=== PATIENT | male | born 1955 | race Caucasian/White ===

== ENCOUNTER 2017-11-11 14:34 | Day surgery (SDC) | payer MEDICARE, BC ==
[~2017-11-11] VITALS: Ht 175.3 cm; Wt 102.9 kg
[2017-11-11] MEDS ORDERED: LORazepam 0.5 MG tablet PO PRN (15:05)
[2017-11-11] MEDS ORDERED: normal saline 1000ml 1,000 ML IV SCH (15:05)
[2017-11-11] MEDS ORDERED: diphenhydrAMINE 25mg capsule PO PRN (15:05)
[2017-11-11 15:12] VITALS: BP 130/80
[2017-11-11] MEDS ORDERED: AMLO5TAB4 PO (15:50)
[2017-11-11] MEDS ORDERED: ASPI81TA52 PO (15:51)
[2017-11-11] MEDS ORDERED: SIRO0.5T PO (15:51)
[2017-11-11] MEDS ORDERED: CALC-463 PO (15:52)
[2017-11-11] MEDS ORDERED: SAW/1TAB2 PO (15:53)
[2017-11-11] MEDS ORDERED: CHOL10002 PO (15:54)
[2017-11-11] MEDS ORDERED: UBID100C16 PO (15:55)
[2017-11-11] MEDS ORDERED: FISH12002 PO (15:56)
[2017-11-11] MEDS ORDERED: ESOM20CA PO (15:59)
[2017-11-11] MEDS ORDERED: LEVO100T PO (15:59)
[2017-11-11] MEDS ORDERED: midazolam 2 mg/2 ml injection ONE (16:37)
[2017-11-11] MEDS ORDERED: iohexol 350MG/ML 100ml bottle IV ONE (16:37)
[2017-11-11] MEDS ORDERED: fentaNYL/PF 50MCG/1 ML 2ML syringe ONE (16:37)
[2017-11-11] MEDS ORDERED: LIDOcaine 1%/PF (10mg/ml) 5ml vial ONE (16:37)
[2017-11-11 18:10] VITALS: BP 126/83
[2017-11-11 18:30] VITALS: BP 140/75
[2017-11-11 18:45] VITALS: BP 126/85
[2017-11-11 19:00] VITALS: BP 128/75
[2017-11-11 19:15] VITALS: BP 146/88
== END 2017-11-11 19:30 | disposition home or self-care (01) ==
LOC: SSTAY O 14:34
PROVIDERS: ATTEND Internal Medicine Interventional Cardiology
DX: I25.10 Atherosclerotic heart disease of native coronary artery without angina pectoris (principal); I25.2 Old myocardial infarction; Z95.5 Presence of coronary angioplasty implant and graft; I10 Essential (primary) hypertension
CPT/HCPCS: 93005; 93458; A6257; C1769; J1644; J2001; J2250; J3010; J7030; Q0163; Q9967; 99152; A4620

== ENCOUNTER 2019-01-25 19:27 | Emergency (ER) | payer MEDICARE, BC ==
[~2019-01-25] VITALS: Ht 170.2 cm; Wt 97.7 kg
[~2019-01-25 19:27] MED LIST: AMLO5TAB4 PO; ASPI81TA52 PO; CALC-463 PO; CHOL10002 PO; ESOM20CA PO; FISH12002 PO; LEVO100T PO; SAW/1TAB2 PO; SIRO0.5T PO; UBID100C16 PO
[2019-01-25] MEDS ORDERED: HYDROcodone/acetaminophen 5mg/325mg tablet PO ONE (20:40)
[2019-01-25] MEDS ORDERED: LIDOcaine 1% w/epiNEPHrine 1:200,000 30ml vial IM ONE (20:40)
[2019-01-25] MEDS ORDERED: amox tr/potassium clavulanate 875/125mg TAB PO ONE (21:30)
[2019-01-25] MEDS ORDERED: rabies immune globulin/PF 150 unit/ml inj IM ONE (21:30)
[2019-01-25] MEDS ORDERED: rabies vaccine (PCEC)/PF 2.5 unit kit IM ONE (21:30)
[2019-01-25] MEDS ORDERED: AMOX-580 PO (21:56)
[2019-01-25] MEDS ORDERED: HYDR-3965 PO (22:41)
[2019-01-25 22:57] VITALS: BP 144/90
== END 2019-01-25 22:57 | disposition home or self-care (01) ==
LOC: ER 19:27
DX: S61.411A Laceration without foreign body of right hand, initial encounter (principal); S60.311A Abrasion of right thumb, initial encounter; Z90.49 Acquired absence of other specified parts of digestive tract; Z79.82 Long term (current) use of aspirin; Z79.899 Other long term (current) drug therapy; W54.0XXA Bitten by dog, initial encounter; Y93.89 Activity, other specified; Y92.89 Other specified places as the place of occurrence of the external cause; Y99.8 Other external cause status
CPT/HCPCS: 73130; 90375; 90471; 90675; 96372; 99283; J3490

== ENCOUNTER 2019-09-28 16:10 | Emergency (ER) | payer MEDICARE, BC ==
[~2019-09-28] VITALS: Ht 188 cm; Wt 95.5 kg
[2019-09-28] MEDS ORDERED: normal saline 1000ML IV soln IVB ONE ×2 (16:40→21:30)
[2019-09-28 17:10] LABS: BASOPHILS # (AUTO) 0.1 X10'3 (0-0.2); BASOPHILS % (AUTO) 0.3 % (0-1); EOSINOPHILS # (AUTO) 0.8 X10'3 (0-0.9); EOSINOPHILS % (AUTO) 4.7 % (0-6); HEMATOCRIT 46.7 % (42.0-52.0); HEMOGLOBIN 16.1 g/dl (14.0-17.9); LYMPHOCYTES # (AUTO) 0.4 X10'3 (1.1-4.8); MEAN CORPUSCULAR HEMOGLOBIN 31.5 PG (27.0-31.0); MEAN CORPUSCULAR HGB CONC 34.5 g/dL (33.0-36.5); MEAN CORPUSCULAR VOLUME 91.2 FL (78-98); MONOCYTES # (AUTO) 1.5 X10'3 (0-0.9); MONOCYTES % (AUTO) 8.4 % (2-12); NEUTROPHILS # (AUTO) 14.6 X10'3 (1.8-7.7); NEUTROPHILS % (AUTO) 84.6 % (42-75); RED BLOOD COUNT 5.12 X10'6 (4.70-6.10); WHITE BLOOD COUNT 17.3 X10'3 (4.5-11.0)
[2019-09-28 17:18] LABS: PARTIAL THROMBOPLASTIN TIME 29 SECONDS (22-32)
[2019-09-28 17:26] LABS: ALANINE AMINOTRANSFERASE 43 U/L (12-78); ALKALINE PHOSPHATASE 138 IU/L (46-116); ANION GAP 12 (8-16); ASPARTATE AMINO TRANSFERASE 59 U/L (10-37); BILIRUBIN,TOTAL 11.9 MG/DL (0.1-1.0); BLOOD UREA NITROGEN 112 MG/DL (7-18); BUN/CREATININE RATIO 55.7 (5.4-32.0); CALCIUM 6.3 MG/DL (8.5-10.1); CHLORIDE 111 MMOL/L (99-107); CREATININE 2.01 MG/DL (0.60-1.10); ETHANOL < 0.010 GM/DL (0.0-0.010); GLUCOSE 115 MG/DL (70-104); SODIUM 144 MMOL/L (135-145); TOTAL CARBON DIOXIDE 21.4 MMOL/L (24-32); eGFR 33 ML/MIN
[2019-09-28 17:28] LABS: CLARITY,URINE SLIGHTLY CLOUDY (Clear); COLOR,URINE AMBER (Yellow); GLUCOSE, URINE 100 mg/dl (Neg); KETONES,URINE TRACE mg/dl (Neg); LEUKOCYTE ESTERASE ,URINE NEGATIVE (Neg); NITRITES, URINE NEGATIVE (Neg); OCCULT BLOOD,URINE LARGE (Neg); PROTEIN,URINE 30 mg/dl (Neg)
[2019-09-28 17:29] LABS: POTASSIUM 2.7 MMOL/L (3.5-5.1)
[2019-09-28 17:31] LABS: UA COLLECTION TYPE FOLEY CATH
[2019-09-28 17:41] LABS: URINE AMPHETAMINE SCREEN NEGATIVE (Neg); URINE BARBITUATE SCREEN NEGATIVE (Neg); URINE BENZODIAZEPINES SCREEN NEGATIVE (Neg); URINE CANNABINOID SCREEN NEGATIVE (Neg); URINE COCAINE SCREEN NEGATIVE (Neg); URINE METHADONE SCREEN NEGATIVE (Neg); URINE OPIATE SCREEN NEGATIVE (Neg); URINE PHENCYCLIDINE SCREEN NEGATIVE (Neg)
[2019-09-28 17:45] LABS: PLATELET COUNT 18 X10'3 (140-440)
[2019-09-28 17:46] LABS: TOTAL PROTEIN 4.6 G/DL (6.4-8.2)
[2019-09-28 17:48] LABS: ALBUMIN 1.3 G/DL (3.4-5.0); ALBUMIN/GLOBULIN RATIO 0.4 (1.1-1.5)
[2019-09-28 17:49] LABS: RBC,URINE 20-50 /HPF (0-2)
[2019-09-28 17:50] LABS: AMORPHOUS URATES 1+; WBC,URINE 0-4 /HPF (0-4)
[2019-09-28 17:51] LABS: BACTERIA,URINE FEW /HPF (Neg); HYALINE CASTS 0-3 /LPF (NEGATIVE); MUCUS STRANDS FEW /LPF (Neg); SQUAMOUS EPITHELIAL CELL,UR FEW /LPF (FEW); TRANSITIONAL EPI CELLS,URINE FEW /HPF
[2019-09-28 18:14] LABS: TOTAL CELLS COUNTED 100
[2019-09-28 18:16] LABS: TOXIC GRANULATION 4+; TOXIC VACUOLATION 1+
[2019-09-28 18:17] LABS: ACANTHOCYTES FEW; BURR CELLS FEW; LARGE PLATELETS FEW; PLATELET ESTIMATE DECREASED; POIKILOCYTOSIS 1+; TARGET CELLS 1+
[2019-09-28 18:18] LABS: ROULEAUX 1+
[2019-09-28] MEDS ORDERED: CefTRIAXone 2gm/D5W 50ml 50 ML IV ONE (18:25)
--- NOTE | 2019-09-28 19:32 | NUR ---
Recieved call from Pt's sister Leslye. 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 Per Pt transplant occured in 2006. Per Leslye, Pt has no known Hx of stroke. Leslye lives in [place] and can be reached at [phone].
[2019-09-28 20:12] LABS: LYMPHOCYTES # (AUTO) 0.7 X10'3 (1.1-4.8); MEAN CORPUSCULAR HGB CONC 34.6 g/dL (33.0-36.5)
[2019-09-28 20:13] LABS: BASOPHILS % (AUTO) 0.1 % (0-1); EOSINOPHILS # (AUTO) 0.5 X10'3 (0-0.9); EOSINOPHILS % (AUTO) 1.9 % (0-6); HEMATOCRIT 51.6 % (42.0-52.0); HEMOGLOBIN 17.8 g/dl (14.0-17.9); MEAN CORPUSCULAR HEMOGLOBIN 31.6 PG (27.0-31.0); MEAN CORPUSCULAR VOLUME 91.5 FL (78-98); MEAN PLATELET VOLUME 11.6 FL (7.4-10.4); MONOCYTES # (AUTO) 3.2 X10'3 (0-0.9); MONOCYTES % (AUTO) 13.3 % (2-12); NEUTROPHILS # (AUTO) 19.8 X10'3 (1.8-7.7); NEUTROPHILS % (AUTO) 81.7 % (42-75); RED BLOOD COUNT 5.63 X10'6 (4.70-6.10); RED CELL DISTRIBUTION WIDTH 15.4 % (11.5-14.5); WHITE BLOOD COUNT 24.2 X10'3 (4.5-11.0)
[2019-09-28 20:44] LABS: PLATELET COUNT 22 X10'3 (140-440)
[2019-09-28] MEDS: potassium Cl 10 mEq/100mL bag IV SCH ×2 (20:50→22:32)
[2019-09-28 20:54] LABS: TOTAL CELLS COUNTED 100
[2019-09-28 20:55] LABS: PLATELET ESTIMATE DECREASED
[2019-09-28 20:56] LABS: ACANTHOCYTES FEW; TARGET CELLS 1+; TEAR DROP CELLS FEW; TOXIC GRANULATION 4+; TOXIC VACUOLATION 4+
[2019-09-28] MEDS ORDERED: piperacillin/tazo 3.375gm/50ml 50 ML IV ONE (21:00)
--- NOTE | 2019-09-28 21:29 | NUR ---
Dr. Conroy made aware Pt BP 87/35. VORB to bolus 1 L NS now.
[2019-09-28] MEDS ORDERED: normal saline 1000ml 1,000 ML IV ONE (21:30)
[2019-09-28] MEDS ORDERED: albumin (human) 25% 100 ML IV solution IV ONE (21:55)
[2019-09-28] MEDS ORDERED: vancomycin/NS 1 GM ADD-VANTAGE 250 ML IV ONE (21:55)
[2019-09-28] MEDS ORDERED: normal saline 1000ML IV soln IV ONE (21:55)
--- NOTE | 2019-09-28 22:13 | NUR ---
Pt BP noted to be 130/58. Will continue to monitor.
[2019-09-29 02:13] LABS: BASOPHILS % (AUTO) 0.1 % (0-1); EOSINOPHILS # (AUTO) 0.9 X10'3 (0-0.9); EOSINOPHILS % (AUTO) 4.5 % (0-6); HEMATOCRIT 42.5 % (42.0-52.0); HEMOGLOBIN 14.7 g/dl (14.0-17.9); LYMPHOCYTES # (AUTO) 0.7 X10'3 (1.1-4.8); LYMPHOCYTES % (AUTO) 3.5 % (21-51); MEAN CORPUSCULAR HEMOGLOBIN 31.2 PG (27.0-31.0); MEAN CORPUSCULAR HGB CONC 34.6 g/dL (33.0-36.5); MEAN CORPUSCULAR VOLUME 90.1 FL (78-98); MEAN PLATELET VOLUME 13.4 FL (7.4-10.4); MONOCYTES # (AUTO) 2.7 X10'3 (0-0.9); MONOCYTES % (AUTO) 13.3 % (2-12); NEUTROPHILS % (AUTO) 78.6 % (42-75); RED BLOOD COUNT 4.71 X10'6 (4.70-6.10); RED CELL DISTRIBUTION WIDTH 15.2 % (11.5-14.5); WHITE BLOOD COUNT 20.3 X10'3 (4.5-11.0)
[2019-09-29 02:15] LABS: ALBUMIN 1.8 G/DL (3.4-5.0); ANION GAP 12 (8-16); BLOOD UREA NITROGEN 122 MG/DL (7-18); BUN/CREATININE RATIO 56.2 (5.4-32.0); CALCIUM 7.4 MG/DL (8.5-10.1); CHLORIDE 111 MMOL/L (99-107); CREATININE 2.17 MG/DL (0.60-1.10); GLUCOSE 124 MG/DL (70-104); PLATELET COUNT 37 X10'3 (140-440); SODIUM 144 MMOL/L (135-145); TOTAL CARBON DIOXIDE 20.6 MMOL/L (24-32); eGFR 31 ML/MIN
[2019-09-29 02:16] LABS: POTASSIUM 3.3 MMOL/L (3.5-5.1)
[2019-09-29] MEDS ORDERED: potassium CL 10mEq/100ml bag 100 ML IV PRN (02:35)
[2019-09-29] MEDS ORDERED: potassium Cl 20 mEq SR tablet PO PRN ×2 (02:35)
[2019-09-29 02:42] LABS: TOTAL CELLS COUNTED 100
[2019-09-29 02:43] LABS: PLATELET ESTIMATE DECREASED
[2019-09-29 02:44] LABS: TARGET CELLS FEW; TOXIC GRANULATION 4+; TOXIC VACUOLATION 2+
--- NOTE | 2019-09-29 04:00 | NUR ---
Report called to MAGGIE Mix at [facility] [place]
[2019-09-29 04:34] VITALS: BP 107/64
[2019-09-29] MEDS ORDERED: K and/or MAG REPLACEMENT MC SCH (08:00)
== END 2019-09-29 04:39 | disposition short-term general hospital (02) ==
LOC: ER 16:10
DX: G93.41 Metabolic encephalopathy (principal); E86.0 Dehydration; N17.9 Acute kidney failure, unspecified; A41.9 Sepsis, unspecified organism; Z90.49 Acquired absence of other specified parts of digestive tract; Z60.2 Problems related to living alone; Z79.899 Other long term (current) drug therapy; Z79.82 Long term (current) use of aspirin
CPT/HCPCS: 36415; 70450; 71045; 80048; 80053; 80305; 80320; 81001; 82140; 82948; 83605; 84145; 84484; 85025; 85610; 85730; 87040; 93005; 96361; 96365; 96366; 96367; 96368; 99291; J0696; J2543; J3370; J3480; J7030; P9047

== ENCOUNTER 2022-05-23 13:22 | Outpatient (CLI) | payer MEDICARE, BC | END 2022-05-23 23:59 | disposition home or self-care (01) | LOC: RAD 13:22 | PROVIDERS: ATTEND Internal Medicine | DX: R13.12 Dysphagia, oropharyngeal phase (principal); R47.1 Dysarthria and anarthria; R49.0 Dysphonia; Z85.89 Personal history of malignant neoplasm of other organs and systems | CPT/HCPCS: 74230 ==

== ENCOUNTER 2023-11-25 11:19 | Emergency (ER) | payer MEDICARE, BC ==
[~2023-11-25] VITALS: Ht 175.3 cm; Wt 90.9 kg
[2023-11-25 11:54] LABS: BASOPHILS # (AUTO) 0.1 X10'3 (0-0.2); BASOPHILS % (AUTO) 0.8 % (0-1); EOSINOPHILS # (AUTO) 0.2 X10'3 (0-0.9); EOSINOPHILS % (AUTO) 2.6 % (0-6); HEMATOCRIT 49.3 % (42.0-52.0); HEMOGLOBIN 16.9 g/dl (14.0-17.9); LYMPHOCYTES # (AUTO) 1.5 X10'3 (1.1-4.8); LYMPHOCYTES % (AUTO) 20.1 % (21-51); MEAN CORPUSCULAR HEMOGLOBIN 32.8 PG (27.0-31.0); MEAN CORPUSCULAR HGB CONC 34.3 g/dL (33.0-36.5); MEAN CORPUSCULAR VOLUME 95.8 FL (78-98); MEAN PLATELET VOLUME 8.5 FL (7.4-10.4); MONOCYTES # (AUTO) 0.9 X10'3 (0-0.9); MONOCYTES % (AUTO) 11.8 % (2-12); NEUTROPHILS # (AUTO) 4.7 X10'3 (1.8-7.7); NEUTROPHILS % (AUTO) 64.7 % (42-75); PLATELET COUNT 248 X10'3 (140-440); RED BLOOD COUNT 5.15 X10'6 (4.70-6.10); RED CELL DISTRIBUTION WIDTH 14.6 % (11.5-14.5); WHITE BLOOD COUNT 7.3 X10'3 (4.5-11.0)
[2023-11-25 12:13] LABS: ALBUMIN 4.1 G/DL (3.4-5.0); ANION GAP 10 (8-16); BLOOD UREA NITROGEN 14 MG/DL (7-18); BUN/CREATININE RATIO 15.4 (10.0-20.0); CALCIUM 9.6 MG/DL (8.5-10.1); CHLORIDE 104 MMOL/L (99-107); CREATININE 0.91 MG/DL (0.60-1.10); GLUCOSE 86 MG/DL (70-104); PRO BRAIN NATRIURETIC PEPTIDE 137 PG/ML (0-125); SODIUM 140 MMOL/L (135-145); TOTAL CARBON DIOXIDE 26.5 MMOL/L (24-32); eCRCL 76 ML/MIN; eGFR 82 ML/MIN
[2023-11-25 12:15] LABS: POTASSIUM 4.4 MMOL/L (3.5-5.1)
[2023-11-25] MEDS ORDERED: normal saline 1000ML IV soln IVB ONE (19:10)
[2023-11-25] MEDS ORDERED: iohexol 300mg/ml 100ml inj. ONE (19:13)
[2023-11-25] MEDS ORDERED: HYDROmorphone 1 mg/ml syringe IV ONE (21:10)
[2023-11-26 14:30] VITALS: TEMP 98.4
[2023-11-26 19:20] VITALS: BP 143/71; PULSE 64; RESP 18; O2SAT 98
== END 2023-11-26 21:26 | disposition short-term general hospital (02) ==
LOC: ER 11:20
DX: G95.89 Other specified diseases of spinal cord (principal); R10.13 Epigastric pain; R07.89 Other chest pain; N17.9 Acute kidney failure, unspecified; Z98.890 Other specified postprocedural states
CPT/HCPCS: 36415; 71045; 74177; 80048; 83880; 84484; 85025; 93005; 96361; 96374; 99285; J1170; J3490; J7030; Q9967

== ENCOUNTER 2024-06-09 23:07 | Inpatient (IN) | payer MEDICARE, BC ==
[~2024-06-09] VITALS: Ht 170.2 cm; Wt 70.5 kg
[2024-06-09 23:27] LABS: HEMOGLOBIN 7.6 g/dl (14.0-17.9)
[2024-06-09 23:28] LABS: HEMATOCRIT 22.6 % (42.0-52.0); MEAN CORPUSCULAR HEMOGLOBIN 36.3 PG (27.0-31.0); MEAN CORPUSCULAR HGB CONC 33.7 g/dL (33.0-36.5); MEAN CORPUSCULAR VOLUME 107.5 FL (78-98); MEAN PLATELET VOLUME 8.1 FL (7.4-10.4); RED BLOOD COUNT 2.11 X10'6 (4.70-6.10); RED CELL DISTRIBUTION WIDTH 20.3 % (11.5-14.5)
[2024-06-09 23:51] LABS: ALANINE AMINOTRANSFERASE 16 U/L (12-78); ALBUMIN 2.6 G/DL (3.4-5.0); ALBUMIN/GLOBULIN RATIO 0.7 (1.1-1.5); ALKALINE PHOSPHATASE 103 IU/L (46-116); ANION GAP 10 (8-16); ASPARTATE AMINO TRANSFERASE 13 U/L (10-37); BILIRUBIN,TOTAL 0.7 MG/DL (0.1-1.0); BLOOD UREA NITROGEN 41 MG/DL (7-18); BUN/CREATININE RATIO 28.9 (10.0-20.0); CALCIUM 7.8 MG/DL (8.5-10.1); CHLORIDE 102 MMOL/L (99-107); CREATININE 1.42 MG/DL (0.60-1.10); GLUCOSE 99 MG/DL (70-104); POTASSIUM 3.6 MMOL/L (3.5-5.1); SODIUM 137 MMOL/L (135-145); TOTAL CARBON DIOXIDE 25.2 MMOL/L (24-32); TOTAL PROTEIN 6.4 G/DL (6.4-8.2); eCRCL 45 ML/MIN; eGFR 49 ML/MIN
[2024-06-09 23:58] LABS: PRO BRAIN NATRIURETIC PEPTIDE 1040 PG/ML (0-125)
[2024-06-10] VITALS (9 sets, daily range): BP systolic 76–116; BP diastolic 41–66; PULSE 76–113; RESP 14–26; TEMP 97.9–100.5; O2SAT 93–97
[2024-06-10 00:09] LABS: PLATELET COUNT 33 X10'3 (140-440); WHITE BLOOD COUNT 0.5 X10'3 (4.5-11.0)
[2024-06-10] MEDS: ondansetron/PF 4mg/2ml inj IV ONE (00:38)
[2024-06-10] MEDS: normal saline 1000ML IV soln IVB ONE (00:39)
[2024-06-10 01:05] LABS: TOTAL CELLS COUNTED 100
[2024-06-10 01:07] LABS: ANISOCYTOSIS 3+; PLATELET ESTIMATE DECREASED
[2024-06-10] MEDS ORDERED: magnesium sulf-water 4G/100mL 100 ML IV PRN (01:10)
[2024-06-10] MEDS ORDERED: mag hydrox/Alum hydrox/simeth 30ml oral suspension PO PRN (01:10)
[2024-06-10] MEDS: normal saline 1000ml 1,000 ML IV SCH (01:10)
[2024-06-10] MEDS ORDERED: potassium Cl 20 mEq SR tablet PO PRN (01:10)
[2024-06-10] MEDS ORDERED: ondansetron/PF 4mg/2ml inj IV PRN (01:10)
[2024-06-10] MEDS ORDERED: magnesium hydroxide 30ml (MOM) UD suspension PO PRN (01:10)
[2024-06-10] MEDS ORDERED: potassium Cl 40MEQ/1/2NS 520ml 520 ML IV PRN (01:10)
[2024-06-10] MEDS ORDERED: magnesium sulf-water 2g/50mL 50 ML IV PRN (01:10)
[2024-06-10 01:13] LABS: ACANTHOCYTES FEW; HYPOCHROMASIA 1+
[2024-06-10 01:18] LABS: SCHISTOCYTES FEW
[2024-06-10 01:19] LABS: HOWELL-JOLLY BODIES FEW
[2024-06-10 01:20] LABS: TARGET CELLS FEW
[2024-06-10] MEDS: acetaminophen 325mg tablet PO ONE (05:30)
[2024-06-10 07:29] LABS: MAGNESIUM 1.1 MG/DL (1.5-2.4); POTASSIUM 3.5 MMOL/L (3.5-5.1)
[2024-06-10] MEDS: K and/or MAG REPLACEMENT MC SCH (08:00)
[2024-06-10] MEDS ORDERED: TACR0.5C3 PO (13:30)
[2024-06-10] MEDS: magnesium Cl slow-release 64mg tablet PO PRN (22:21)
[2024-06-11] VITALS (10 sets, daily range): BP systolic 81–111; BP diastolic 40–60; PULSE 64–105; RESP 12–23; TEMP 97.6–100.1; O2SAT 91–96
[2024-06-11 06:06] LABS: LYMPHOCYTES # (AUTO) 0.3 X10'3 (1.1-4.8); MONOCYTES # (AUTO) 0.4 X10'3 (0-0.9); NEUTROPHILS # (AUTO) 0.4 X10'3 (1.8-7.7); WHITE BLOOD COUNT 1.2 X10'3 (4.5-11.0)
[2024-06-11 06:09] LABS: BASOPHILS % (AUTO) 3.1 % (0-1); EOSINOPHILS % (AUTO) 3.3 % (0-6); LYMPHOCYTES % (AUTO) 26.1 % (21-51); MEAN CORPUSCULAR HEMOGLOBIN 36.5 PG (27.0-31.0); MEAN CORPUSCULAR HGB CONC 34.4 g/dL (33.0-36.5); MEAN CORPUSCULAR VOLUME 106.4 FL (78-98); MEAN PLATELET VOLUME 8.3 FL (7.4-10.4); MONOCYTES % (AUTO) 32.1 % (2-12); NEUTROPHILS % (AUTO) 35.4 % (42-75); RED BLOOD COUNT 1.68 X10'6 (4.70-6.10); RED CELL DISTRIBUTION WIDTH 19.3 % (11.5-14.5)
[2024-06-11 06:15] LABS: ALANINE AMINOTRANSFERASE 10 U/L (12-78); ALBUMIN 2.2 G/DL (3.4-5.0); ALBUMIN/GLOBULIN RATIO 0.6 (1.1-1.5); ALKALINE PHOSPHATASE 95 IU/L (46-116); ANION GAP 8 (8-16); ASPARTATE AMINO TRANSFERASE 14 U/L (10-37); BILIRUBIN,TOTAL 0.6 MG/DL (0.1-1.0); BLOOD UREA NITROGEN 25 MG/DL (7-18); CALCIUM 7.1 MG/DL (8.5-10.1); CHLORIDE 104 MMOL/L (99-107); CREATININE 1.19 MG/DL (0.60-1.10); GLUCOSE 93 MG/DL (70-104); SODIUM 138 MMOL/L (135-145); TOTAL CARBON DIOXIDE 26.5 MMOL/L (24-32); TOTAL PROTEIN 5.6 G/DL (6.4-8.2); eCRCL 53 ML/MIN; eGFR 60 ML/MIN
[2024-06-11 06:24] LABS: MAGNESIUM 0.7 MG/DL (1.5-2.4)
[2024-06-11 06:34] LABS: HEMOGLOBIN 6.1 g/dl (14.0-17.9)
[2024-06-11 06:35] LABS: HEMATOCRIT 17.9 % (42.0-52.0); PLATELET COUNT 15 X10'3 (140-440)
[2024-06-11 06:50] LABS: ANISOCYTOSIS 3+; PLATELET ESTIMATE DECREASED; TOTAL CELLS COUNTED 100
[2024-06-11] MEDS: tacrolimus anhydrous 0.5mg capsule PO SCH (08:00)
[2024-06-11] MEDS ORDERED: SIROLIMUS PO SCH (08:00)
[2024-06-11] MEDS: aspirin 81mg, enteric-coated 1 TAB TABLET.DR PO SCH (08:02)
[2024-06-11] MEDS: levoTHYROXINE 100mcg tablet PO SCH (08:02)
[2024-06-11] MEDS: pantoprazole 40mg Tablet.DR PO SCH (08:02)
[2024-06-11] MEDS: potassium Cl 20 mEq SR tablet PO PRN (08:03)
[2024-06-11 09:42] LABS: IRON 70 UG/DL (53-167)
[2024-06-11 09:43] LABS: THYROID STIMULATING HORMONE 0.57 ulU/ml (0.34-4.50)
[2024-06-11 10:40] LABS: LACTATE DEHYDROGENASE 166 U/L (85-227)
[2024-06-11 11:01] LABS: % IRON SATURATION 18 % (11-46); TOTAL IRON BINDING CAPACITY 400 UG/DL (259-388)
[2024-06-11 11:09] LABS: BILIRUBIN,DIRECT 0.2 MG/DL (0-0.3)
[2024-06-11 11:15] LABS: RED BLOOD COUNT 1.7 X10'6 (4.70-6.10); RETICULOCYTE % (AUTO) 0.4 % (0.5-1.5)
[2024-06-11] MEDS: lactose-reduced food (Ensure Enlive) - 237ml bottle PO SCH (18:00)
[2024-06-12] VITALS (7 sets, daily range): BP systolic 82–125; BP diastolic 47–69; PULSE 70–90; RESP 13–23; TEMP 97.9–101.2; O2SAT 91–95
[2024-06-12] MEDS: acetaminophen 325mg tablet PO PRN (02:59)
[2024-06-12] MEDS: normal saline 500ml IV soln 500 ML IV ONE (05:25)
[2024-06-12 07:43] LABS: MEAN CORPUSCULAR HEMOGLOBIN 35.1 PG (27.0-31.0); MEAN CORPUSCULAR HGB CONC 34.2 g/dL (33.0-36.5); MEAN CORPUSCULAR VOLUME 102.6 FL (78-98); MEAN PLATELET VOLUME 6.9 FL (7.4-10.4); RED BLOOD COUNT 1.84 X10'6 (4.70-6.10); RED CELL DISTRIBUTION WIDTH 21.4 % (11.5-14.5)
[2024-06-12 08:11] LABS: ALANINE AMINOTRANSFERASE 7 U/L (12-78); ALBUMIN 2.1 G/DL (3.4-5.0); ALBUMIN/GLOBULIN RATIO 0.6 (1.1-1.5); ALKALINE PHOSPHATASE 90 IU/L (46-116); ANION GAP 9 (8-16); ASPARTATE AMINO TRANSFERASE 26 U/L (10-37); BILIRUBIN,TOTAL 0.6 MG/DL (0.1-1.0); BLOOD UREA NITROGEN 21 MG/DL (7-18); BUN/CREATININE RATIO 19.1 (10.0-20.0); CALCIUM 6.9 MG/DL (8.5-10.1); CHLORIDE 107 MMOL/L (99-107); GLUCOSE 98 MG/DL (70-104); POTASSIUM 3.7 MMOL/L (3.5-5.1); SODIUM 140 MMOL/L (135-145); TOTAL CARBON DIOXIDE 23.9 MMOL/L (24-32); TOTAL PROTEIN 5.4 G/DL (6.4-8.2); eCRCL 58 ML/MIN; eGFR 66 ML/MIN
[2024-06-12 08:15] LABS: HEMATOCRIT 18.9 % (42.0-52.0); HEMOGLOBIN 6.5 g/dl (14.0-17.9); PLATELET COUNT 36 X10'3 (140-440)
[2024-06-12 08:25] LABS: MAGNESIUM 0.8 MG/DL (1.5-2.4)
[2024-06-12 09:10] LABS: ACANTHOCYTES FEW; ANISOCYTOSIS 3+; PLATELET ESTIMATE DECREASED; SCHISTOCYTES FEW; TOTAL CELLS COUNTED 100
[2024-06-12 11:13] LABS: HAPTOGLOBIN 282 mg/dL (34-355)
[2024-06-12] MEDS ORDERED: MAGN500C4 PO (14:16)
== END 2024-06-12 20:00 | disposition home health service (06) | DRG 640 ==
LOC: ER 23:08 → UNDOADMIN 06-10 01:11 → ED HOLD 06-10 01:11 → EDBEDREQ 06-10 03:41 → PCU 3S 06-10 04:30
PROVIDERS: ADMIT Internal Medicine Pulmonary Disease; ATTEND Internal Medicine
PROC: 30233N1 Transfusion of Nonautologous Red Blood Cells into Peripheral Vein, Percutaneous Approach (ICD-10-PCS; 2024-06-11)
PROC: 30233R1 Transfusion of Nonautologous Platelets into Peripheral Vein, Percutaneous Approach (ICD-10-PCS; principal; 2024-06-12)
DX: E86.0 Dehydration (principal); I21.A1 Myocardial infarction type 2; N17.9 Acute kidney failure, unspecified; Z94.4 Liver transplant status; Z94.0 Kidney transplant status; D64.81 Anemia due to antineoplastic chemotherapy; Z85.818 Personal history of malignant neoplasm of other sites of lip, oral cavity, and pharynx; D53.1 Other megaloblastic anemias, not elsewhere classified; I95.1 Orthostatic hypotension; T45.1X5A Adverse effect of antineoplastic and immunosuppressive drugs, initial encounter; I65.23 Occlusion and stenosis of bilateral carotid arteries; D69.6 Thrombocytopenia, unspecified; E83.42 Hypomagnesemia; E03.9 Hypothyroidism, unspecified; Z85.830 Personal history of malignant neoplasm of bone; Z90.49 Acquired absence of other specified parts of digestive tract; Z79.899 Other long term (current) drug therapy; Z79.82 Long term (current) use of aspirin; Y92.89 Other specified places as the place of occurrence of the external cause
CPT/HCPCS: 36415; 36430; 70450; 71045; 80053; 82248; 82607; 83010; 83540; 83550; 83615; 83735; 83880; 84132; 84443; 84484; 85007; 85025; 85045; 86885; 86900; 86901; 86920; 86945; 87081; 92508; 92616; 93005; 93306; 93880; 96374; 97116; 97161; 97530; 99285; G0378; J2405; J7030; J7040; J7507; P9016; P9035

== ENCOUNTER 2024-10-06 15:45 | Outpatient (CLI) | payer MEDICARE, BC ==
[~2024-10-06 15:45] MED LIST changes: -AMLO5TAB4 PO; -ASPI81TA52 PO; -ESOM20CA PO; +MAGN500C4 PO; -SAW/1TAB2 PO; -SIRO0.5T PO; +TACR0.5C3 PO
== END 2024-10-06 23:59 | disposition home or self-care (01) ==
LOC: RAD 15:45
PROVIDERS: ATTEND Internal Medicine
DX: R13.12 Dysphagia, oropharyngeal phase (principal); G51.0 Bell's palsy; Z79.621 Long term (current) use of calcineurin inhibitor; Z79.82 Long term (current) use of aspirin; Z79.890 Hormone replacement therapy; Z79.899 Other long term (current) drug therapy; Z85.818 Personal history of malignant neoplasm of other sites of lip, oral cavity, and pharynx; Z92.3 Personal history of irradiation
CPT/HCPCS: 74230